=== PATIENT | female | born 1980 | race Caucasian/White ===

== ENCOUNTER 2017-06-08 17:46 | Emergency (ER) | payer OTHER ==
[~2017-06-08] VITALS: Ht 157.5 cm; Wt 127.0 kg
[2017-06-08 18:01] VITALS: BP 174/105
[2017-06-08] MEDS ORDERED: HYDROcodone/APAP 10/325 1 TAB TABLET PO ONE (18:45)
[2017-06-08] MEDS ORDERED: HYDR-963 PO (20:24)
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
== END 2017-06-08 21:06 | disposition home or self-care (01) ==
LOC: ER 17:46
DX: S62.612A Displaced fracture of proximal phalanx of right middle finger, initial encounter for closed fracture (principal); S62.614A Displaced fracture of proximal phalanx of right ring finger, initial encounter for closed fracture; I10 Essential (primary) hypertension; F17.210 Nicotine dependence, cigarettes, uncomplicated; Z88.0 Allergy status to penicillin; W23.0XXA Caught, crushed, jammed, or pinched between moving objects, initial encounter; Y93.89 Activity, other specified; Y99.8 Other external cause status; Y92.89 Other specified places as the place of occurrence of the external cause
CPT/HCPCS: 29125; 73130; 99284-25

== ENCOUNTER 2017-07-28 19:01 | Emergency (ER) | payer OTHER ==
[~2017-07-28] VITALS: Ht 157.5 cm; Wt 127.0 kg
[~2017-07-28 19:01] MED LIST: HYDR-963 PO
[2017-07-28] MEDS ORDERED: KETOROLAC 60 MG/2 ML VIAL. IM ONE (19:15)
[2017-07-28] MEDS ORDERED: CLIN150C14 PO (19:18)
[2017-07-28] MEDS ORDERED: HYDR-971 PO (19:18)
--- NOTE | 2017-07-28 19:18 | PHYS DOC ---
Past History Past Medical History: Hypertension Past Surgical History: No Surgical History Smoking: Cigarettes, Less than 1pk/day Alcohol Use: Rarely Drug Use: None Adult General Chief Complaint Chief Complaint: DENTAL PROBLEM HPI HPI Patient is a 36 year old female who presents with dental pain. The patient reports onset of severe left lower dental pain yesterday after chewing. Denies fevers/chills, jaw swelling, shortness of breath. Pain with eating or drinking. States she is taking ibuprofen without relief of symptoms. History of HTN for which she takes lisinopril, states she is compliant. She denies headache, chest pain, shortness of breath, extremity numbness/weakness. Review of Systems Review of Systems Constitutional: Denies fever or chills HENT: Denies nasal congestion or sore throat, reports dental pain. Respiratory: Denies cough or shortness of breath Cardiovascular: Denies chest pain GI: Denies abdominal pain, nausea, vomiting Musculoskeletal: Denies back pain or joint pain Integument: Denies rash Neurologic: Denies headache, focal weakness or sensory changes Allergies Allergies Allergies Coded Allergies Type Severity Reaction Last Updated Verified Penicillins Allergy Unknown 06/08/17 Yes Physical Exam Physical Exam Constitutional: morbidly obese, crying & moaning. HENT: Normocephalic, atraumatic, bilateral external ears normal, oropharynx moist, nose normal. left premolar with severe decay, surrounding gingival erythema, tenderness. no abscess, no jaw swelling or trismus. Eyes: conjunctiva normal, no discharge. Cardiovascular: no edema. Lungs & Thorax: no respiratory distress. Abdomen: nondistended. Skin: no rash. Extremities: No deformity Neurologic: Alert and oriented X 3 EKG EKG [] Radiology/Procedures Radiology/Procedures [] Course & Med Decision Making Course & Med Decision Making Pertinent Labs and Imaging studies reviewed. (See chart for details) The patient presents with dental pain & infection. Blood pressure elevated, asymptomatic, likely exacerbated by pain. Recommend compliance with meds & recheck by PCP in 1 week. Offered dental block here which she refused. Gave IM meds due to her severe distress. Will give prescription for clindamycin ( penicillin allergy) & norco, continue ice packs & ibuprofen. Follow up with a dentist as soon as possible, provided clinic list. Come back for difficulty breathing or swallowing, or any otherwise worsening condition. Discharged home in stable condition. [] Bi Disclaimer Bi Disclaimer This chart was dictated in whole or in part using Voice Recognition software in a busy, high-work load, and often noisy Emergency Department environment. It may contain unintended and wholly unrecognized errors or omissions. Departure Departure: Impression: Primary Impression: Pain, dental Disposition: 01 HOME, SELF-CARE Condition: STABLE Referrals: BERTHA PELAEZ MD (PCP) Patient Instructions: Dental Pain, [id number], Hypertension, [id number] Additional Instructions: You were seen in the emergency department today for dental pain. Ultimately the treatment will be to be seen by a dentist. You may not feel 100% better immediately today. It will take time. Apply ice packs, take ibuprofen no more than 800 mg every 8 hours, use [place] as needed for severe breakthrough pain. Take the prescribed antibiotic. Your blood pressure was very high today. Be sure to take blood pressure medication faithfully and have your blood pressure rechecked by primary care physician within the next week. Follow up as soon as possible with a dentist for definitive management of your dental pain. Come back for difficulty breathing or swallowing, or any otherwise worsening condition. Scripts Clindamycin Hcl (CLINDAMYCIN HCL) 150 Mg Capsule 3 CAP PO TID for 7 Days, #63 CAP Prov: ALEX MENDEZ MD 07/28/17 Hydrocodone Bit/Acetaminophen (NORCO 5-325 TABLET) 1 Each Tablet 1-2 TAB PO Q4-6HRS Y for SEVERE PAIN, #10 TAB Prov: ALEX MENDEZ MD 07/28/17 ALEX MENDEZ MD Jul 28, 2017 19:18
[2017-07-28 19:25] VITALS: BP 154/87
== END 2017-07-28 19:25 | disposition home or self-care (01) ==
LOC: ER 19:01
DX: K08.89 Other specified disorders of teeth and supporting structures (principal); I10 Essential (primary) hypertension; F17.210 Nicotine dependence, cigarettes, uncomplicated; Z88.0 Allergy status to penicillin
CPT/HCPCS: 96372; 99284; J1885; J3010

== ENCOUNTER 2017-09-25 18:23 | Emergency (ER) | payer SELFPAY ==
[~2017-09-25] VITALS: Ht 157.5 cm; Wt 127.0 kg
[~2017-09-25 18:23] MED LIST changes: +CLIN150C14 PO; +HYDR-971 PO
[2017-09-25] MEDS ORDERED: CLIN300C8 PO (20:37)
[2017-09-25] MEDS ORDERED: HYDR-971 PO (20:37)
--- NOTE | 2017-09-25 20:38 | PHYS DOC ---
General Chief Complaint: DENTAL PROBLEM Stated Complaint: DENTAL PAIN Time Seen by MD: 20:19 Source: patient, old records Exam Limitations: no limitations Problems: History of Present Illness Initial Comments Patient is a 37-year-old female who comes in the ED complaining of dental pain. Patient states that over the past week or so she's had increasing left lower molar dental pain. She states that today she's developed some left-sided jaw swelling, pain is described as severe and throbbing and worse with eating. She denies any fever chills or myalgias, no jaw or bony tenderness according to the patient. Tuck-mrw-gcuylpe medications are not working she is requesting pain relief. She has no difficulty swallowing and no throat swelling, no dyspnea. Patient was seen July 28, 2017 for dental pain associated with the same tooth. At that time she was prescribed Mccurtain and clindamycin advised to follow- up with her dentist. She states that while trying to schedule with a dentist her insurance was canceled and states that she's been trying to get reestablished. She has not sought outpatient dental care for this condition recently. Blood pressure 165/90 otherwise vital signs are stable patient is afebrile no tachycardia. Timing/Duration: other Severity: severe Location: dental Prearrival Treatment: over the counter meds, prescription meds Modifying Factors: improves with other Associated Symptoms: facial pain/swelling, tooth pain Allergies: Coded Allergies: Penicillins (Verified Allergy, Unknown, 06/08/17) Past Medical History Medical History: other (hypertension, anxiety) Surgical History: other (cholecystectomy, section, tonsillectomy) Social History Smoker: cigarettes Alcohol: rarely Drugs: none Constitutional: denies chills, denies diaphoresis, denies fever, denies malaise Ears: denies dizziness, denies pain, denies tinnitus Nose: denies congestion, denies epistaxis Mouth: see HPI Throat: denies pain, denies neck stiffness, denies painful swallowing, denies difficulty with fluids Respiratory: denies cough, denies shortness of breath, denies wheezing Cardiovascular: denies chest pain, denies palpitations, denies syncope Gastrointestinal: denies diarrhea, denies nausea, denies vomiting Physical Exam General Appearance: moderate distress, obese Eyes: bilateral eye normal inspection, bilateral eye PERRL, bilateral eye EOMI , bilateral eye other (patient is tearful) Nose: normal inspection Mouth/Throat: other (severe caries at the patient's left lower most posterior molar, there is gingival swelling no purulence no bony tenderness. 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 She was advised that further treatment must be per a dentist, that it is a disservice to her to continue treating her with antibiotics and pain medications from the emergency department. Due to severity of her symptoms Mccurtain 10 mg and clindamycin given here in the emergency department and prescription given. Signs and symptoms to monitor as well as urgent indications to return were discussed as well as smoking cessation, prescription and [id number]-[id number] medications. Patient was advised to follow-up with a dentist SURYA, and to call and schedule appointment tomorrow morning. She expressed agreement and understanding with the treatment plan. Departure Time of Disposition: 20:37 Disposition: 01 HOME, SELF-CARE Diagnosis: dental caries with facial cellulitis Condition: STABLE Patient Instructions: Dental Caries-Brief Additional Instructions: As discussed you must follow-up with a dentist as we are unable to resolve this condition for you from the emergency department. Off work today and tomorrow. Skbz-gdz-[id number] ibuprofen for baseline discomfort. Aggressive hydration to prevent dehydration. Prescriptions: Clindamycin, Mccurtain 5 mg quantity 15 Follow-up with Dr. Lamb in 1-2 days for recheck. Return to ED with new or changing symptoms. ROSS CASTREJON DO Sep 25, 2017 20:38
[2017-09-25] MEDS ORDERED: CLINDAMYCIN HCL 150 MG CAPSULE PO ONE (20:45)
[2017-09-25] MEDS ORDERED: ONDANSETRON ODT 4 MG TAB.RAPDIS PO ONE (20:45)
[2017-09-25] MEDS ORDERED: HYDROcodone/APAP 10/325 1 TAB TABLET PO ONE (20:45)
[2017-09-25 21:09] VITALS: BP 165/90
== END 2017-09-25 21:07 | disposition home or self-care (01) ==
LOC: ER 18:23
DX: K02.9 Dental caries, unspecified (principal); L03.211 Cellulitis of face; F41.9 Anxiety disorder, unspecified; I10 Essential (primary) hypertension; F17.210 Nicotine dependence, cigarettes, uncomplicated; Z88.0 Allergy status to penicillin
CPT/HCPCS: 99284; Q0162

== ENCOUNTER 2018-06-23 15:47 | Emergency (ER) | payer SELFPAY ==
[~2018-06-23 15:47] MED LIST changes: +CLIN300C8 PO
[2018-06-23 16:08] VITALS: BP 157/87
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
[2018-06-23] MEDS ORDERED: ACET-704 PO (16:56)
[2018-06-23] MEDS ORDERED: CLIN300C8 PO (16:56)
[2018-06-23] MEDS ORDERED: ACETAMINOPHEN 325 MG TABLET PO ONE (17:00)
[2018-06-23] MEDS ORDERED: HYDR-971 PO (17:11)
== END 2018-06-23 17:14 | disposition home or self-care (01) ==
LOC: ER 15:47
DX: S02.652A Fracture of angle of left mandible, initial encounter for closed fracture (principal); S02.40EA Zygomatic fracture, right side, initial encounter for closed fracture; S02.81XA Fracture of other specified skull and facial bones, right side, initial encounter for closed fracture; F41.9 Anxiety disorder, unspecified; I10 Essential (primary) hypertension; F17.210 Nicotine dependence, cigarettes, uncomplicated; Z88.0 Allergy status to penicillin; Y04.0XXA Assault by unarmed brawl or fight, initial encounter; Y93.89 Activity, other specified; Y99.8 Other external cause status; Y92.89 Other specified places as the place of occurrence of the external cause
CPT/HCPCS: 70450; 70486; 99284-25

== ENCOUNTER 2019-05-15 19:45 | Emergency (ER) | payer SELFPAY ==
[~2019-05-15] VITALS: Ht 157.5 cm; Wt 133.5 kg
[~2019-05-15 19:45] MED LIST changes: +ACET-704 PO; +HYDR-3136 PO; +HYDR-3165 PO; -HYDR-963 PO; -HYDR-971 PO
[2019-05-15 19:54] VITALS: BP 177/93
[2019-05-15] MEDS ORDERED: HYDR-3165 PO (20:00)
[2019-05-15] MEDS ORDERED: SILV20CR14 TP (20:00)
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
[2019-05-15] MEDS ORDERED: HYDROcodone/APAP 5/325MG 1 TAB TABLET ONE (20:07)
[2019-05-15] MEDS ORDERED: silver sulfADIAZINE 1% CREAM 50GM JAR. TP ONE ×2 (20:07→20:15)
[2019-05-15] MEDS ORDERED: HYDROcodone/APAP 5/325MG 1 TAB TABLET PO ONE (20:15)
== END 2019-05-15 20:14 | disposition home or self-care (01) ==
LOC: ER 19:45
DX: T25.212A Burn of second degree of left ankle, initial encounter (principal); F17.210 Nicotine dependence, cigarettes, uncomplicated; Z88.5 Allergy status to narcotic agent; Z88.0 Allergy status to penicillin; X10.2XXA Contact with fats and cooking oils, initial encounter; Y93.89 Activity, other specified; Y92.89 Other specified places as the place of occurrence of the external cause; Y99.8 Other external cause status
CPT/HCPCS: 99283

== ENCOUNTER 2019-07-28 16:50 | Emergency (ER) | payer SELFPAY ==
[~2019-07-28 16:50] MED LIST changes: +SILV20CR14 TP
[2019-07-28 17:01] VITALS: BP 135/86
[2019-07-28] MEDS ORDERED: OXAP600T2 PO (17:23)
[2019-07-28] MEDS ORDERED: ORPH-16 PO (17:23)
--- NOTE | 2019-07-28 17:23 | PHYS DOC ---
Past History Past Medical History: Anxiety, Bipolar, GERD Past Surgical History: Cholecystectomy, Additional Past Surgical Histo: melanoma removal from the left nose Smoking: Cigarettes, Less than 1pk/day Alcohol Use: None Drug Use: None Adult General Chief Complaint Chief Complaint: SHOULDER INJURY HPI HPI Patient is a 38-year-old female presents complaining of right shoulder pain after a trip and fall at approximately 6:00 this morning. She caught herself on her outstretched hands. She was stepping over a baby gate inside of her house and tripped. No loss of consciousness. Increased pain with movement. No relief with ibuprofen or heat. Pain is severe. No numbness or tingling. She is right- hand dominant. No radiation of the discomfort.[] Review of Systems Review of Systems Constitutional: Denies fever or chills [] Eyes: Denies change in visual acuity, redness, or eye pain [] HENT: Denies nasal congestion or sore throat [] Respiratory: Denies cough or shortness of breath [] Cardiovascular: No chest pain or palpitations[] GI: Denies abdominal pain, nausea, vomiting, bloody stools or diarrhea [] : Denies dysuria or hematuria [] Musculoskeletal: Denies back pain, see history of present illness[] Integument: Denies rash or skin lesions [] Neurologic: Denies headache, focal weakness or sensory changes [] Endocrine: Denies polyuria or polydipsia [] All other systems were reviewed and found to be within normal limits, except as documented in this note. Allergies Allergies Allergies Coded Allergies Type Severity Reaction Last Updated Verified codeine Allergy Intermediate 06/23/18 Yes Penicillins Allergy Unknown 06/08/17 Yes tramadol Allergy Unknown 05/15/19 Yes Physical Exam Physical Exam Constitutional: Well developed, well nourished, mild to moderate discomfort, non-toxic appearance. [] HENT: Normocephalic, atraumatic, bilateral external ears normal, oropharynx moist, no oral exudates, nose normal. [] Eyes: PERRLA, EOMI, conjunctiva normal, no discharge. [] Neck: Normal range of motion, no tenderness, supple, no stridor. [] Cardiovascular:Heart rate regular rhythm, no murmur [] Lungs & Thorax: Bilateral breath sounds clear to auscultation [] Abdomen: Not examined. [] Skin: Warm, dry, no erythema, no rash. [] Back: No tenderness, no CVA tenderness. [] Extremities: Right shoulder has no step off on visual examination. There is tenderness over the acromioclavicular joint. Decreased active range of motion secondary to pain. No clavicular tenderness to palpation. No elbow tenderness. No increased pain with axial compression of the humerus. Patient is distally neurovascularly intact. The other 3 extremities show: No tenderness, no cyanosis, no clubbing, ROM intact, no edema. [] Neurologic: Alert and oriented X 3, normal motor function, normal sensory function, no focal deficits noted. [] Psychologic: Affect normal, judgement normal, mood normal. [] Current Patient Data Vital Signs Vital Signs Date Time Temp Pulse Resp B/P (MAP) Pulse Ox O2 Delivery O2 Flow Rate FiO2 07/28/19 17:01 74 18 100 Room Air EKG EKG [] Radiology/Procedures Radiology/Procedures X-ray of the right shoulder shows no evidence of a fracture or dislocation[] Course & Med Decision Making Course & Med Decision Making Pertinent Labs and Imaging studies reviewed. (See chart for details) ED course: Patient arrived, was placed in bed, and tolerated exam well. She was transported to and from radiology without any complications. She was given parenteral pain medicine and a sling was applied. She was distally neurovascularly intact after sling application. Findings and plan were discussed with the patient who voiced understanding. All questions were answered. She was discharged in improved condition. Medical decision making: There is no evidence of a fracture or dislocation. No evidence of neurologic or vascular compromise.[] Dragon Disclaimer Dragon Disclaimer This electronic medical record was generated, in whole or in part, using a voice recognition dictation system. Departure Departure: Impression: Primary Impression: Right shoulder injury Disposition: HOME, SELF-CARE Condition: IMPROVED Referrals: BERTHA PELAEZ MD (PCP) Follow-up in 2 days Patient Instructions: Shoulder Pain, Sling Use After Injury or Surgery Additional Instructions: Follow-up with your regular doctor in 2 days. Wear the sling as directed. Return to the ER if worsening pain or any other concerns. Scripts Oxaprozin (OXAPROZIN) 600 Mg Tablet 600 MG PO BID for pain, #20 TAB Prov: LARISSA JACKSON DO 07/28/19 Orphenadrine Citrate (ORPHENADRINE CITRATE) 100 Mg Tablet.er 100 MG PO BID for BACK PAIN, #20 TAB.SR Prov: LARISSA JACKSON DO 07/28/19 Problem Qualifiers Primary Impression: Right shoulder injury Encounter type: initial encounter Qualified Codes: S49.91XA - Unspecified injury of right shoulder and upper arm, initial encounter LARISSA JACKSON DO Jul 28, 2019 17:23
[2019-07-28] MEDS ORDERED: KETOROLAC 30 MG/ML VIAL. IM ONE (17:30)
--- NOTE | 2019-07-28 17:40 | RAD ---
Indication:Fall. Right shoulder pain. TECHNIQUE: 3 views of the right shoulder COMPARISON:None FINDINGS/ impression: No acute fracture or distribution. Visualized right lung is clear. No arthritic process. Electronically signed by: Colt Dickinson DO (07/28/2019 5:37 PM) [facility]
== END 2019-07-28 17:36 | disposition home or self-care (01) ==
LOC: ER 16:50
DX: S49.91XA Unspecified injury of right shoulder and upper arm, initial encounter (principal); K21.9 Gastro-esophageal reflux disease without esophagitis; F17.210 Nicotine dependence, cigarettes, uncomplicated; Z88.5 Allergy status to narcotic agent; Z88.0 Allergy status to penicillin; Z88.6 Allergy status to analgesic agent; W01.0XXA Fall on same level from slipping, tripping and stumbling without subsequent striking against object, initial encounter; Y93.89 Activity, other specified; Y92.89 Other specified places as the place of occurrence of the external cause; Y99.8 Other external cause status
CPT/HCPCS: 73030; 99284

== ENCOUNTER 2022-02-24 20:45 | Emergency (ER) | payer MEDICAID ==
[~2022-02-24] VITALS: Ht 157.5 cm; Wt 112.5 kg
[~2022-02-24 20:45] MED LIST changes: +CLIN-95 PO; -CLIN150C14 PO; +CLIN150C16 PO; -CLIN300C8 PO; +ORPH-16 PO; +OXAP600T2 PO
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
[2022-02-24] MEDS ORDERED: ORPHENADRINE CITRATE 60 MG/2 ML VIAL. IM ONE (21:30)
--- NOTE | 2022-02-24 21:54 | RAD ---
Exam: Frontal view of the chest with frontal and oblique views of the right ribs INDICATION: Right anterior lower rib pain, pain TECHNIQUE: Frontal view of the chest with frontal and oblique views of the right ribs Comparisons: None FINDINGS: The cardiomediastinal silhouette and pulmonary vessels are within normal limits. The lung and pleural spaces are clear. No displaced rib fractures. IMPRESSION: 1. No acute cardiopulmonary process. 2. No displaced rib fracture. Electronically signed by: Miriam Gan MD (02/24/2022 9:52 PM) [facility]
[2022-02-24] MEDS ORDERED: IBUP-1673 PO (22:02)
[2022-02-24] MEDS ORDERED: CYCL10TA19 PO (22:02)
[2022-02-24 22:46] VITALS: BP 148/89
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
== END 2022-02-24 22:46 | disposition home or self-care (01) ==
LOC: ER 20:45
DX: S22.42XA Multiple fractures of ribs, left side, initial encounter for closed fracture (principal); F41.9 Anxiety disorder, unspecified; F31.9 Bipolar disorder, unspecified; K21.9 Gastro-esophageal reflux disease without esophagitis; F17.210 Nicotine dependence, cigarettes, uncomplicated; Z88.5 Allergy status to narcotic agent; Z88.0 Allergy status to penicillin; Z88.6 Allergy status to analgesic agent; X50.9XXA Other and unspecified overexertion or strenuous movements or postures, initial encounter; Y93.89 Activity, other specified; Y92.89 Other specified places as the place of occurrence of the external cause; Y99.8 Other external cause status
CPT/HCPCS: 71100; 71101; 96372; 99284; J2360